=== PATIENT | female | born 1955 | race Caucasian/White ===

== ENCOUNTER 2025-09-14 00:33 | Emergency (ER) | payer MEDICARE, SELFPAY ==
[2025-09-14 00:34] VITALS: BMI 28.3
[2025-09-14 00:42] VITALS: BP 166/93; PULSE 89; RESP 20; TEMP 37.2; O2SAT 98
--- NOTE | 2025-09-14 00:55 | PD.EDRME ---
Rapid Medical Screening Exam RME Arrival date/time: 09/14/25 00:33 Chief Complaint: Abdominal Pain Time Seen by Provider: 09/14/25 00:35 Vital signs: Vital Signs Temperature 98.9 F 09/14/25 00:42 Pulse Rate 89 09/14/25 00:42 Respiratory Rate 20 09/14/25 00:42 Blood Pressure 166/93 H 09/14/25 00:42 Pulse Oximetry (%) 98 09/14/25 00:42 Oxygen Delivery Method Room Air 09/14/25 00:42 Vital signs reviewed by provider: Yes RME Narrative: 70-year-old female presents to the ER complaining of right lower quadrant pain since 2 PM today. Patient did eat dinner at 6 PM. Denies nausea vomiting diarrhea fever or urinary symptoms. I briefly performed a screening evaluation to initiate work-up and expedite care. Complete history, physical exam, and plan of care is deferred to the provider in the main ED.
--- NOTE | 2025-09-14 00:56 | XR_ITS ---
Examination: CT abdomen with intravenous contrast CT pelvis with intravenous contrast 2-D coronal reconstructions 2-D sagittal reconstructions Date and time of exam: September 14, 2025, 0340 hours INDICATIONS: Right-sided abdominal pain beginning 1400 hours yesterday. CTDI: vol (mGy) 10.0 DLP: (mGycm) 546 Technique: Multiple axial sections of the abdomen and pelvis have been obtained. 64 slice high-resolution scanner used. 3 mm axial sections have been obtained, post intravenous injection 60 cc [id number] 2-D sagittal, coronal reconstructions obtained. Low dose protocols were performed. One or more of the following dose reduction techniques were used; automated exposure control, adjustment of the mA and/or KV according to patient size, use of iterative reconstruction technique. Findings: No visualized liver or splenic lesion No gallstones Possible minimal edema around the head of the pancreas, no pseudocyst No renal or ureteral calculi, no hydronephrosis Multiple mildly fluid distended small bowel loops No obstruction Normal appendix No diverticulitis. Atrophic uterus Urinary bladder intact Significant osteopenia, moderate to advanced disc narrowing L4-L5 Moderate narrowing hip joints IMPRESSION: Consider MRCP follow-up to confirm acute pancreatitis Mildly fluid distended small bowel loops, consider enteritis, ileus Normal appendix
[2025-09-14 01:21] LABS: Basophils # (Auto) 0.1 Thou/mm3 (0.0-0.2); Basophils % (Auto) 2 % (0-2.5); Eosinophils # (Auto) 0.2 Thou/mm3 (0.0-0.5); Eosinophils % (Auto) 4 % (0-10); Hematocrit 35.5 % (36.0-46.0); Hemoglobin 12.3 g/dL (12.0-16.0); Immature Granulocytes Auto 0.01 Thou/mm3 (0.00-0.00); Lymphocytes # (Auto) 0.9 Thou/mm3 (1.0-4.8); Lymphocytes % (Auto) 16 % (10-50); Mean Corpuscular HGB Conc 34.6 g/dl (31.0-37.0); Mean Corpuscular Hemoglobin 32.6 pg (25.0-35.0); Mean Corpuscular Volume 94 fL (80-100); Monocytes # (Auto) 0.6 Thou/mm3 (0.0-0.8); Monocytes % (Auto) 10 % (0-12); Neutrophils # (Auto) 4.0 Thou/mm3 (1.8-7.7); Neutrophils % (Auto) 69 % (37-80); Nucleated Red Blood Cell # 0.00 Thou/mm3 (0.00-0.00); Nucleated Red Blood Cell % 0 /100 WBC (0); Platelet Count 177 Thou/mm3 (140-440); RDW Standard Deviation 43.9 fL (36.4-46.3); Red Blood Count 3.77 Miln/mm3 (4.00-5.20); White Blood Count 5.9 Thou/mm3 (3.6-11.0)
--- NOTE | 2025-09-14 01:33 | EDNOTE_ITS ---
ED Abdominal Pain RME/HPI General Chief Complaint: Abdominal Pain Stated complaint: ABD PAIN Time seen by provider: 09/14/25 00:35 Arrival date/time: 09/14/25 00:33 RME / HPI RME / HPI narrative: 70-year-old female presents to the ER complaining of right lower quadrant pain since 2 PM today. Patient did eat dinner at 6 PM. Denies nausea vomiting diarrhea fever or urinary symptoms. I briefly performed a screening evaluation to initiate work-up and expedite care. Complete history, physical exam, and plan of care is deferred to the provider in the main ED. DR. WONG MAIN ED EVALUATION: Patient presenting with onset of RUQ abdominal pain described as sharp occasionally radiating to the right flank since approximately 2 PM, intermittent in nature throughout the day and increasing this evening. No nausea, vomiting, fever, or chills. Denies dysuria. No previous similar episodes. Pain is worse with PO intake. PMH: Unremarkable for DM, HTN, or Thyroid Disease PSH: Occular surgery/Lasic Allergies: None reported Social: No alcoholism or illicit drug abuse Related Data Previous Rx's ?Medication ?Instructions ?Recorded promethazine 12.5 mg tablet 12.5 mg PO TID PRN nausea and 09/14/25 vomiting #20 tabs Allergies Allergy/AdvReac Type Severity Reaction Status Date / Time No Known Allergies Allergy Verified 09/14/25 00:34 Review of Systems Review of Systems Systems Reviewed: All systems reviewed, normal except as documented Past Medical History Social History SMOKING STATUS: Never smoker ED Exam Narrative Physical exam: GEN. APPEARANCE: The patient is alert awake oriented X-3 under moderate distress c/p RUQ abdominal pain, lying down comfortably, does not look ill/toxic. Patient has good eye contact. Patient is cooperative. VITALS: All vitals were reviewed and the pulse ox is 98%, which is normal according to my interpretation HEENT: Normocephalic, atraumatic and nontender. Pupils are equal and reactive. Oral mucosa is moist. NECK: Supple, nontender, no meningismus, no JVD. There is no thyromegaly and no lymphadenopathy. CHEST: Nontender on palpation no deformity and no crepitus. CARDIOVASCULAR: Heart regular rhythm, no murmur or gallop rub or extra beats. LUNGS: Clear to auscultation bilaterally with symmetrical chest rise. No laboring tachypnea or wheezing. No intercostal subcostal retraction. No rales and no rhonchi. ABDOMEN: Soft, flat, mildly tender at epigastrium/RUQ, no gorss peritoneal findings, no guarding or rebound tenderness. There are no abnormal masses palpated. No pulsatile masses or bruits. Active and normal bowel sounds. EXTREMITIES:.Normal inspection and palpation. No edema. No cyanosis. Patient is able to move all 4 extremities well SKIN: Warm and dry, no rashes noted. MUSCULOSKELETAL: No lumbar or midline bony tenderness. There is no CVA tenderness. No paraspinal muscle spasm or tenderness. NEURO: Cranial nerves II through XII grossly intact. There are no focal neurologic deficits noted. GCS is 15 PSYCHIATRIC: Patient is in normal mood and affect, cooperative. LYMPHATICS: No major lymphadenopathy noted. Course Quality Measures none Orders Category Date Time Status CT Screening NOW Care 09/14/25 00:[address] abdomen pelvis w con Stat Exams 09/14/25 00:56 Taken CBC Stat Lab 09/14/25 01:15 Completed CMP [Comprehensive Metabolic Panel] Stat Lab 09/14/25 01:15 Completed Lipase Stat Lab 09/14/25 01:15 Completed UA, C/S IF [Urinalysis, C/S if Indicated] Stat Lab 09/14/25 03:41 Completed Morphine* Inj Med 09/14/25 00:56 Discontinued 4 mg IM X1 ONE Morphine* Inj Med 09/14/25 02:59 Discontinued 4 mg IVP X1 ONE Ondansetron Inj [Zofran Inj] Med 09/14/25 00:56 Discontinued 4 mg IVP X1 ONE Sodium Chloride 0.9% 1000 ml [Ns] 1,000 ml Med 09/14/25 00:56 Discontinued IV 999 mls/hr Vital Signs Vital signs: Vital Signs Temperature 98.9 F 09/14/25 00:42 Pulse Rate 89 09/14/25 00:42 Respiratory Rate 20 09/14/25 00:42 Blood Pressure 166/93 H 09/14/25 00:42 Pulse Oximetry (%) 98 09/14/25 00:42 Oxygen Delivery Method Room Air 09/14/25 00:42 Abdominal Pain MDM MDM Narrative MDM Narrative:: Scribe Attestation: I, Gisela Tolentino, am scribing for and in the presence of Dr. Wong. Provider Notation: Although this document has been carefully reviewed, there may still be some phonetic and other typographical errors. These errors are purely grammatical due to imperfections in the software program and should not be construed in any way to compromise the substance of the patient's medical care during this visit. Patient presenting with onset of RUQ abdominal pain described as sharp occasionally radiating to the right flank since approximately 2 PM, intermittent in nature throughout the day and increasing this evening. No nausea, vomiting, fever, or chills. Denies dysuria. Please see PE findings. Laboratory markers, including CBC and serum chemistries, were essentially unremarkable. CT scan demonstrates evidence of mild enteritis and subtle early pancreatitis. Patient remained hemodynamically stable, non-toxic, and reports overall improvement with serial abdominal exam benign. Recommend clear liquid diet, prescribed low-dose narcotic analgesics/anti-emetics. Patient will be discharged with instructions to F/U with [facility] in 3-5 days to repeat pancreatic enzyme analysis. Patient data External records reviewed:: [facility] previous records (No prior ED records available for review) Clinical information provided by:: patient Social determinants that could affect healthcare access:: none Patient has the following chronic illnesses:: None reported How is presenting disease/condition affected by chronic disease/condition?: no chronic disease Evaluation data The following diagnostics were reviewed and interpreted by me:: lab results and radiology exam(s) Lab and/or radiology exams considered but not ordered:: None Interpretation Summary: RADIOLOGY Abdomen/Pelvis CT: Findings: The lung bases are clear. The liver, gallbladder, spleen, kidneys and adrenals are unremarkable. The head of the pancreas is edematous with subtle peripancreatic fat stranding. No focal peripancreatic fluid collection. No evidence of bowel obstruction. The appendix is within normal limits. The uterus and ovaries are within normal limits. Diverticulosis of the colon. A few scattered air-fluid levels in the small bowel without dilation or wall thickening. There is no mesenteric or retroperitoneal adenopathy. The urinary bladder is unremarkable. There is no free fluid or free air. The osseous structures are unremarkable. Fecal loading. Impression: Possible mild enteritis. Findings suggestive of acute pancreatitis as described. No focal peripancreatic fluid collection Medications / Prescriptions Medications or Prescriptions considered but not ordered:: None Medication administrations:: Medication Administration History Discontinued Medications Sodium Chloride (Ns) 1,000 mls @ 999 mls/hr IV .Q1H1M ONE Stop: 09/14/25 01:56 Last Admin: 09/14/25 03:30 Dose: 999 mls/hr Documented By: JUANJOSE Morphine Sulfate (Morphine Sulf Inj 4 Mg/Ml Vial) 4 mg IM X1 ONE Stop: 09/14/25 00:57 Morphine Sulfate (Morphine Sulf Inj 4 Mg/Ml Vial) 4 mg IVP X1 ONE Stop: 09/14/25 03:00 Last Admin: 09/14/25 03:30 Dose: 4 mg Documented By: JUANJOSE Ondansetron HCl (Ondansetron Inj 2 Mg/Ml Inj 2 Ml) 4 mg IVP X1 ONE; Protocol Stop: 09/14/25 00:57 Last Admin: 09/14/25 03:30 Dose: 4 mg Documented By: JUANJOSE See above if any Consultations Consultation(s) initiated? (list below): No Diagnosis Differential diagnosis abdominal pain: abdominal pain, calculus of kidney, constipation, diverticulitis, gastroenteritis, pancreatitis and small bowel obstruction Most likely diagnosis given after review of the tests above:: Pancreatitis Admission Indicated Admission indicated?: not indicated Explain why admission is indicated or not indicated:: Patient does not meet admission criteria Admission Request Was there a request for admission?: No Disposition Plan Disposition Plan: Discharge Discharge Attestation Discharge Attestation: The patient and all family members were given an opportunity to ask questions and understood the discharge instructions. Discharge instructions specifically effects, indications for sooner follow up or return to the emergency department, and the expected course of current diagnosis. Patient condition: Stable Discharge Plan Plan Patient Disposition: HOME (Self Care) Prescriptions/Referrals Referrals: No Primary/Family,Physician [Primary Care Provider] - In 1 week Problem List Clinical Impression: Pancreatitis Patient/Caregiver Discharge Instructions Print Language: Turkish Stand Alone Forms: Jessica Award Info., Patient Portal Info Letter
[2025-09-14 01:40] LABS: Alanine Aminotransferase 72 U/L (10-49); Albumin, Serum 4.6 gm/dL (3.4-4.8); Albumin/Globulin Ratio 2.0 (1.2-2.2); Alkaline Phosphatase 83 U/L (46-116); Anion Gap 9 (7-16); Aspartate Amino Transferase 62 U/L (0-34); BUN/Creatinine Ratio 16 Ratio (12-20); Bilirubin,Total 0.6 mg/dL (0.3-1.2); Blood Urea Nitrogen 16 mg/dL (9-23); Calcium 10.1 mg/dL (8.3-10.6); Calcium (Corrected) 10.1 mg/dL (8.5-10.1); Carbon Dioxide 26.0 mMol/L (20.0-31.0); Chloride 106 mMol/L (98-107); Creatinine (Component) 1.0 mg/dL (0.6-1.3); Estimated Creatinine Clearance 55.3 mL/min (>60); Globulin 2.3 gm/dL (2.3-3.5); Glucose 119 mg/dL (74-106); Lipase 45 U/L (12-53); Osmolality,Calculated 283 (275-295); Potassium 3.9 mMol/L (3.4-5.1); Sodium 141 mMol/L (136-145); Total Protein 6.9 gm/dL (5.7-8.2); eGFR > 60 See Note
[2025-09-14] MEDS: MORPHINE SULF INJ 4 MG/ML VIAL IVP (03:30)
[2025-09-14] MEDS: ONDANSETRON INJ 2 MG/ML INJ 2 ML 4 MG IVP (03:30)
[2025-09-14] MEDS: SODIUM CHLORIDE 0.9% 1000 ML 1,000 ML 999 ML IV (03:30)
[2025-09-14 04:09] LABS: Collection Type, Urine Voided
[2025-09-14 04:15] LABS: Bilirubin,Urine Negative (Negative); Blood,Urine Negative (Negative); Clarity,Urine Clear (Clear/Hazy); Color,Urine Colorless (Lt Yel-Yel); Culture Indicated,Urine Not Indicated; Glucose, Urine Negative (Negative); Ketones,Urine Negative (Negative); Leukocyte Esterase,Urine Negative (Negative); Nitrite,Urine Negative (Negative); PH,Urine 6.0 (5.0-7.0); Protein,Urine Negative (Neg - Trace); RBC,Urine < 1 /hpf (0-3); Specific Gravity,Urine 1.010 (1.001-1.035); Squamous Epithelial Cell,Urine 1 /hpf (0-5); Urobilinogen,Urine Negative mg/dL (0.0-1.0); WBC,Urine 1 /hpf (0-5)
--- NOTE | 2025-09-14 04:17 | EDNOTE_ITS ---
ED Abdominal Pain RME/HPI General Chief Complaint: Abdominal Pain Stated complaint: ABD PAIN Time seen by provider: 09/14/25 00:35 Arrival date/time: 09/14/25 00:33 RME / HPI RME / HPI narrative: 70-year-old female presents to the ER complaining of right lower quadrant pain since 2 PM today. Patient did eat dinner at 6 PM. Denies nausea vomiting diarrhea fever or urinary symptoms. I briefly performed a screening evaluation to initiate work-up and expedite care. Complete history, physical exam, and plan of care is deferred to the provider in the main ED. DR. WONG MAIN ED EVALUATION: Patient presenting with onset of RUQ abdominal pain described as sharp occasionally radiating to the right flank since approximately 2 PM, intermittent in nature throughout the day and increasing this evening. No nausea, vomiting, fever, or chills. Denies dysuria. No previous similar episodes. Pain is worse with PO intake. PMH: Unremarkable for DM, HTN, or Thyroid Disease PSH: Occular surgery/Lasic Allergies: None reported Social: No alcoholism or illicit drug abuse Related Data Previous Rx's ?Medication ?Instructions ?Recorded hydrocodone 5 mg-acetaminophen 325 1 tab PO BID PRN pa in #20 tabs 09/14/25 mg tablet promethazine 12.5 mg tablet 12.5 mg PO TID PRN nausea and 09/14/25 vomiting #20 tabs Allergies Allergy/AdvReac Type Severity Reaction Status Date / Time No Known Allergies Allergy Verified 09/14/25 00:34 Course Quality Measures none Orders Category Date Time Status CT Screening NOW Care 09/14/25 00:[address] abdomen pelvis w con Stat Exams 09/14/25 00:56 Completed CBC Stat Lab 09/14/25 01:15 Completed CMP [Comprehensive Metabolic Panel] Stat Lab 09/14/25 01:15 Completed Lipase Stat Lab 09/14/25 01:15 Completed UA, C/S IF [Urinalysis, C/S if Indicated] Stat Lab 09/14/25 03:41 Completed Morphine* Inj Med 09/14/25 00:56 Discontinued 4 mg IM X1 ONE Morphine* Inj Med 09/14/25 02:59 Discontinued 4 mg IVP X1 ONE Ondansetron Inj [Zofran Inj] Med 09/14/25 00:56 Discontinued 4 mg IVP X1 ONE Sodium Chloride 0.9% 1000 ml [Ns] 1,000 ml Med 09/14/25 00:56 Discontinued IV 999 mls/hr Vital Signs Vital signs: Vital Signs Temperature 98.9 F 09/14/25 00:42 Pulse Rate 89 09/14/25 00:42 Respiratory Rate 20 09/14/25 00:42 Blood Pressure 166/93 H 09/14/25 00:42 Pulse Oximetry (%) 98 09/14/25 00:42 Oxygen Delivery Method Room Air 09/14/25 00:42 Abdominal Pain MDM Patient data External records reviewed:: [facility] previous records Clinical information provided by:: patient Social determinants that could affect healthcare access:: none Patient has the following chronic illnesses:: N/A How is presenting disease/condition affected by chronic disease/condition?: uneffected by Evaluation data The following diagnostics were reviewed and interpreted by me:: other (specify) Lab and/or radiology exams considered but not ordered:: Labs and radiology considered, but not ordered as they were not clinically indicated at this time. Interpretation Summary: As noted Medications / Prescriptions Medications or Prescriptions considered but not ordered:: I considered prescription management (both outpatient prescriptions AND drug vignesh atment in the ER) and decided that this was necessary and was prescribed as charted. Medication administrations:: Medication Administration History Discontinued Medications Sodium Chloride (Ns) 1,000 mls @ 999 mls/hr IV .Q1H1M ONE Stop: 09/14/25 01:56 Last Admin: 09/14/25 03:30 Dose: 999 mls/hr Documented By: JUANJOSE Morphine Sulfate (Morphine Sulf Inj 4 Mg/Ml Vial) 4 mg IM X1 ONE Stop: 09/14/25 00:57 Morphine Sulfate (Morphine Sulf Inj 4 Mg/Ml Vial) 4 mg IVP X1 ONE Stop: 09/14/25 03:00 Last Admin: 09/14/25 03:30 Dose: 4 mg Documented By: JUANJOSE Ondansetron HCl (Ondansetron Inj 2 Mg/Ml Inj 2 Ml) 4 mg IVP X1 ONE; Protocol Stop: 09/14/25 00:57 Last Admin: 09/14/25 03:30 Dose: 4 mg Documented By: JUANJOSE As noted Consultations Consultation(s) initiated? (list below): No Diagnosis Differential diagnosis abdominal pain: abdominal pain and other Most likely diagnosis given after review of the tests above:: As noted on the same Admission Indicated Admission indicated?: not indicated Admission Request Was there a request for admission?: No Disposition Plan Disposition Plan: Discharge Discharge Attestation Discharge Attestation: The patient and all family members were given an opportunity to ask questions and understood the discharge instructions. Discharge instructions specifically effects, indications for sooner follow up or return to the emergency department, and the expected course of current diagnosis. Patient condition: Stable Discharge Plan Plan Patient Disposition: HOME (Self Care) Discharge Disposition comment: Stable Patient condition on transfer: Stable Prescriptions/Referrals Prescriptions/Med Rec: New promethazine 12.5 mg tablet 12.5 mg PO TID PRN (Reason: nausea and vomiting) Qty: 20 0RF hydrocodone-acetaminophen 5-325 mg tablet 1 tab PO BID MDD 10mg PRN (Reason: pain) Qty: 20 0RF Referrals: No Primary/Family,Physician [Primary Care Provider] - In 1 week Problem List Clinical Impression: Pancreatitis Patient/Caregiver Discharge Instructions Discharge Activity: activity as tolerated Diet Instructions: Clear liquid diet x 2 to 3 days and advance as tolerated. Education Materials: ED Pancreatitis Additional Instructions: Clear liquid diet x 2 days. Advance slowly and medications as directed. Follow-up with primary care doctor for repeat enzymatic analysis in 3 to 5 days. Print Language: Greek Stand Alone Forms: Jessica Award Info., Patient Portal Info Letter
--- NOTE | 2025-09-14 05:41 | PRELIM_ITS ---
CT scan of the abdomen and pelvis with intravenous contrast (axial sections with sagittal and coronal reformats) September 14, 2025 0349 hours Clinical History: Right sided abdominal pain. Comparison: None available at the time of this report. Findings: The lung bases are clear. The liver, gallbladder, spleen, kidneys and adrenals are unremarkable. The head of the pancreas is edematous with subtle peripancreatic fat stranding. No focal peripancreatic fluid collection. No evidence of bowel obstruction. The appendix is within normal limits. The uterus and ovaries are within normal limits. Diverticulosis of the colon. A few scattered air-fluid levels in the small bowel without dilation or wall thickening. There is no mesenteric or retroperitoneal adenopathy. The urinary bladder is unremarkable. There is no free fluid or free air. The osseous structures are unremarkable. Fecal loading. Impression: Possible mild enteritis. Findings suggestive of acute pancreatitis as described. No focal peripancreatic fluid collection. Report Electronically Signed By: Jerome Martinez 09/14/2025 5:41:30 AM [EST]
[2025-09-14 06:40] VITALS: PULSE 74; RESP 14; TEMP 36.7; O2SAT 97
== END 2025-09-14 06:41 | disposition home or self-care (01) ==
PROVIDERS: Physician Assistant; Emergency Provider Emergency Medicine
DX: K85.90 Acute pancreatitis without necrosis or infection, unspecified (principal)
CPT/HCPCS: 36415; 74177; 80053; 81001; 83690; 85025; 96374; 96375; 99283; A4649; J2270; J2405; J7030; Q9967